=== PATIENT | male | born 1995 | race Hispanic/Latino ===

== ENCOUNTER 2018-01-05 18:06 | Emergency (ER) | payer OTHER ==
[2018-01-05 19:16] LABS: APPEARANCE, URINE CLEAR (CLEAR); BACTERIA, URINE AUTO NEGATIVE (NEGATIVE); BILIRUBIN, URINE AUTO NEGATIVE (NEGATIVE); BLOOD, URINE BLOOD NEGATIVE (NEGATIVE); COLOR, URINE YELLOW (YELLOW); GLUCOSE, URINE (UA) AUTO NEGATIVE (NEGATIVE); KETONE, URINE AUTO NEGATIVE (NEGATIVE); LEUKOCYTE ESTERASE, URINE AUTO NEGATIVE (NEGATIVE); MUCUS, URINE SMALL (NEGATIVE); NITRITE, URINE AUTO NEGATIVE (NEGATIVE); PROTEIN, URINE AUTO NEGATIVE (NEGATIVE); RBC, URINE AUTO 0 /HPF (0-3); SPECIFIC GRAVITY URINE AUTO 1.018 (1.002-1.035); SQUAMOUS EPITHELIAL CELL UR AU 0 /HPF (0-6); WBC, URINE AUTO 0 /HPF (0-3)
[2018-01-05] MEDS: NORCO 5/325MG TABLET (BULK FOR ED) PO (19:56)
[2018-01-05 22:45] LABS: CHLAMYDIA DNA AMPLIFICATION NEGATIVE (NEGATIVE); GC DNA AMPLIFICATION NEGATIVE (NEGATIVE)
== END 2018-01-05 19:58 | disposition home or self-care (01) ==
LOC: M ED 18:06
DX: N50.3 Cyst of epididymis (principal)
CPT/HCPCS: 76870

== ENCOUNTER 2018-03-08 21:43 | Emergency (ER) | payer OTHER ==
[2018-03-08] MEDS: PERCOCET 5MG/325MG TAB PO (23:24)
[2018-03-08] MEDS: OXYCODONE/APAP 5MG/325MG(BULK FOR ED) 1 TABLET PO (23:24)
== END 2018-03-08 23:31 | disposition home or self-care (01) ==
LOC: M ED 21:43
DX: N50.811 Right testicular pain (principal); N50.3 Cyst of epididymis
CPT/HCPCS: 76870

== ENCOUNTER 2018-10-05 17:35 | Emergency (ER) | payer OTHER ==
[~2018-10-05] VITALS: Ht 162.6 cm; Wt 86.4 kg
[~2018-10-05 17:35] MED LIST: IBUP80TA PO
[2018-10-05] MEDS ORDERED: NAPR-837 PO (21:10)
[2018-10-05] MEDS ORDERED: CYCL10TA PO (21:10)
[2018-10-05] MEDS ORDERED: NAPROXEN 250 MG TAB PO ONE (21:15)
[2018-10-05] MEDS ORDERED: CYCLOBENZAPRINE 10 MG TAB PO ONE (21:15)
[2018-10-05 21:28] VITALS: BP 135/73
--- NOTE | 2018-10-06 09:22 | REP ---
Lumbar spine series: Five views. History: Low back pain. Intermittent sciatica. Findings: Lumbar vertebral body heights are preserved. Alignment is normal. There is no evidence of spondylolysis or spondylolisthesis. Disc spaces are maintained. Alignment is normal. Psoas margins are symmetric. Sacrum and SI joints are unremarkable. Impression: Negative lumbar spine radiographs. Electronically Signed by Trevor Harvey MD 10/06/2018 09:14 A
== END 2018-10-05 21:29 | disposition home or self-care (01) ==
LOC: M ED 17:35
DX: M51.37 Other intervertebral disc degeneration, lumbosacral region (principal); M54.30 Sciatica, unspecified side; F17.210 Nicotine dependence, cigarettes, uncomplicated